=== PATIENT | male | born 1960 | race Caucasian/White ===

== ENCOUNTER 2017-06-13 14:21 | Inpatient (IN) | payer BC, OTHER ==
[~2017-06-13] VITALS: Ht 190.5 cm; Wt 83.9 kg
--- NOTE | 2017-06-13 17:35 | NUR ---
PRE-ADMISSION ASSESSMENT RECEIVED PT AT INTAKE AT 1735. PT INITIAL VS WERE BP:130/80, HR:88, O2 SAT:96%, RR:18, TEMP: 98.8. REPORTS HAVING 0 PAIN. PT APPEARS FLUSHED, SHAKY, HIGHLY ANXIOUS, RESTLESS, AGITATED. PT VOICE SHAKES HE SPEAKS. PT IS THE PRIMARY SOURCE OF INFO. PT IS AMBULATORY. PT STATES HE HAS NKA. PT REPORTS A PMH OF HTN, DEPRESSION, GOUT, HEMOCHROMOCYTOSIS, BACK SX 4 YRS AGO, MINOR KNEE SX. PT STATES HIS FATHER HAD A HX OF ETOH ABUSE. SUBSTANCE USE HX: ETOH UP TO 750 ML DAILY FOR 2 MONTHS. PT STATES HE HAS BEEN DRINKING ON AND OFF FOR YEARS WITH 2-3 MONTHS OF SOBRIETY IN BETWEEN. PT STATES THIS IS HIS FIRST TREATMENT.
[2017-06-13] MEDS ORDERED: TADA5TAB2 PO (17:56)
[2017-06-13] MEDS ORDERED: AMLO1TAB15 PO (17:56)
[2017-06-13] MEDS ORDERED: ALLO300T2 PO (17:56)
[2017-06-13] MEDS ORDERED: LORAZEPAM 2 MG/1 ML VIAL IM PRN (18:00)
[2017-06-13] MEDS ORDERED: LOPERAMIDE HCL 2 MG CAPSULE PO PRN (18:00)
[2017-06-13] MEDS ORDERED: CLONIDINE HCL 0.1 MG TABLET PO PRN (18:00)
[2017-06-13] MEDS ORDERED: IBUPROFEN 400 MG TABLET PO PRN (18:00)
[2017-06-13] MEDS ORDERED: MAG HYDROX/AL HYDROX/SIMETH 30 ML LIQUID UDC PO PRN (18:00)
[2017-06-13] MEDS ORDERED: THIAMINE HCL 200 MG/2 ML VIAL IM ONE ×2 (18:00→20:00)
[2017-06-13] MEDS ORDERED: ONDANSETRON ODT 4 MG TAB.RAPDIS SL PRN (18:00)
[2017-06-13] MEDS ORDERED: MIRALAX 17 GM POWD.PACK PO PRN (18:00)
[2017-06-13] MEDS ORDERED: ONDANSETRON 4 MG/2 ML VIAL IM PRN (18:00)
[2017-06-13] MEDS ORDERED: diphenhydrAMINE 50 MG CAPSULE PO PRN (18:00)
[2017-06-13] MEDS ORDERED: LORAZEPAM 1 MG TABLET PO PRN ×2 (18:00)
[2017-06-13] MEDS ORDERED: MAGNESIUM HYDROXIDE 30 ML LIQUID UDC PO PRN (18:00)
[2017-06-13] MEDS ORDERED: DICYCLOMINE HCL 20 MG TABLET PO PRN (18:00)
--- NOTE | 2017-06-13 19:15 | NUR ---
ADMISSION NOTE PT ARRIVED AT 1735 ON 06/13/17. PT INITIAL VS WERE BP:130/80, HR:88, O2 SAT:96%, RR:18, TEMP: 98.8. REPORTS HAVING 0 PAIN. HT IS 63, 185 LBS. INITIAL CIWA OF 12. PT IS A/OX4, RESPIRATIONS EVEN AND UNLABORED. LUNG SOUNDS CLEAR. BOWEL SOUNDS ACTIVE ON 4X QUADRANTS. ABD SOFT AND NON-TENDER. APPEARS FLUSHED, SHAKY, HIGHLY ANXIOUS, RESTLESS, AGITATED. EYES APPEAR RED AND GLOSSY. PT VOICE SHAKES HE SPEAKS. PT IS THE PRIMARY SOURCE OF INFO. PT IS AMBULATORY. PT STATES HE HAS NKA. PT REPORTS A PMH OF HTN, DEPRESSION, GOUT, HEMOCHROMOCYTOSIS, BACK SX 4 YRS AGO, MINOR KNEE SX. PT REPORTS NO HX OF SZ. DENIES SI/HI. PT STATES HIS FATHER HAD A HX OF ETOH ABUSE. PT STATES HE SMOKES ONCE IN A BLUE [place] BUT NOT DAILY. PT REFUSES PNA/FLU VACCINES. PT SKIN INTACT; BODY CHECK HAS BEEN COMPLETED. PT HAS NOT VOIDED YET AND HAS NOT PROVIDED UDS. SUBSTANCE USE HX: 1. ETOH UP TO 750 ML PO DAILY FOR 2 MONTHS. PT STATES HE HAS BEEN DRINKING ON AND OFF FOR YEARS WITH 2-3 MONTHS OF SOBRIETY ON AND OFF. LAST DRINK WAS AT 3 PM TODAY 06/13/17. 2. XANAX 0.5 MG PO PRN. LAST USED TODAY BEFORE TX. PT STATES XANAX WAS PRESCRIBED TO HIM FOR ANXIETY. PT STATES DUE TO SIGNIFICANT EVENTS IN LIFE, SUCH THE OF HIS BROTHER AND WIFES SX, AND THE RECENTLY SELLING HIS 2 COMPANIES LED HIM TO DRINK MORE THAN USUAL. PT STATES THIS IS HIS FIRST TREATMENT. PT HAS BEEN EDUCATED WITH UNIT RULES AND ORIENTED TO FLOOR. SIDE RAILSX2 UP AND PADDED. BED IS IN LOWEST POSITION. CALL LIGHT WITHIN REACH. INSTRUCTED PT TO USE CALL LIGHT WHEN NEEDED. INSTRUCTED PT TO INCREASE FLUIDS TO PROMOTE HYDRATION. ALL SAFETY MEASURES IN PLACE. WILL GIVE ALL PERTINENT INFO AND ENDORSEMENT TO SPIKE MACHINE HEATER NURSE.
--- NOTE | 2017-06-13 19:30 | NUR ---
START OF SHIFT Patient is a 57-year-old male admitted on 06/13/17 for ETOH (vodka) withdrawal. Patient is FULL code status, on a regular diet, with NKA. Patient has past medical history of anxiety, depression, gout, hypertension, hemochromatosis, and history of back and knee surgery. Patient is on fall and seizure precautions with no history of seizure. Upon assessment, patient is alert and oriented x4, flushed and tremulous, slightly diaphoretic. Patient was able to provide UDS shortly after change of shift. Safety measures in place, side rails up x2, bed locked in low position, call light within reach. Will continue to monitor.
[2017-06-13 20:00] VITALS: BP 127/87
[2017-06-13 20:05] LABS: BASOPHILS % (AUTO) 0.3 % (0.0-2.0); EOSINOPHILS % (AUTO) 0.4 % (0.0-7.0); HEMATOCRIT 33.9 % (36.7-47.1); HEMOGLOBIN 11.7 g/dL (12.5-16.3); LYMPHOCYTES # (AUTO) 0.7 K/uL (20.0-40.0); LYMPHOCYTES % (AUTO) 12.9 % (20.5-51.5); MEAN CORPUSCULAR HEMOGLOBIN 34.8 uug (23.8-33.4); MEAN CORPUSCULAR HGB CONC 34 g/dL (32.5-36.3); MEAN CORPUSCULAR VOLUME 101.2 fL (73.0-96.2); MONOCYTES # (AUTO) 0.7 K/uL (2.0-10.0); MONOCYTES % (AUTO) 12.3 % (0.0-11.0); NEUTROPHILS # (AUTO) 4.2 K/uL (1.8-8.9); NEUTROPHILS % (AUTO) 74.1 % (38.5-71.5); PLATELET COUNT (AUTO) 93 K/uL (152-348); RED BLOOD CELL COUNT(AUTO) 3.35 MIL/uL (4.06-5.63); WHITE BLOOD COUNT (AUTO) 5.7 K/uL (3.6-10.2)
[2017-06-13 20:26] LABS: CREATININE 1.1 mg/dL (0.6-1.3); MAGNESIUM 1.3 mg/dL (1.8-2.4); POTASSIUM 3.9 mmol/L (3.5-5.1); TOTAL PROTEIN, SERUM 6.7 g/dL (6.4-8.2); URIC ACID 5.1 mg/dL (3.5-7.2)
--- NOTE | 2017-06-13 20:29 | NUR ---
VITAMIN B1 NON-ADMIT Duplicate order for vitamin B1 injection. Patient already received injection prior to change of shift, administered by ROGER Bolden.
[2017-06-13 20:31] LABS: *AMPHETAMINE, URINE NEGATIVE (NEGATIVE); *BARBITURATE, URINE NEGATIVE (NEGATIVE); *CANNABINOID, URINE NEGATIVE (NEGATIVE); *COCCAINE, URINE NEGATIVE (NEGATIVE); *OPIATE, URINE NEGATIVE (NEGATIVE); *PHENCYCLIDINE SCREEN,URINE NEGATIVE (NEGATIVE)
[2017-06-13 20:38] LABS: BAND % (MANUAL) 1 % (0-10); LYMPHOCYTES % (MANUAL) 10 % (20-40); MONOCYTES % (MANUAL) 11 % (2-10); NEUTROPHILS % (MANUAL) 78 % (42-75)
[2017-06-13] MEDS ORDERED: LORAZEPAM 1 MG TABLET PO SCH (21:00)
[2017-06-14] VITALS: BP 119/81
--- NOTE | 2017-06-14 | NUR ---
CIWA DEFERRED Patient is asleep, CIWA deferred; to be assessed and scored while patient is awake. Safety measures in place, call light within reach, side rails up x2, bed locked in low position. Will continue to monitor.
[2017-06-14 04:00] VITALS: BP 128/87
--- NOTE | 2017-06-14 04:00 | NUR ---
CIWA DEFERRED Patient is asleep, CIWA deferred; to be assessed and scored while patient is awake. Safety measures in place, bed locked in low position, side rails up x2, call light within reach. Will continue to monitor.
--- NOTE | 2017-06-14 07:10 | NUR ---
END OF SHIFT Patient is a 57-year-old male admitted on 06/13/17 for ETOH withdrawal. Patient received no PRNs and slept for 9 hours during shift. Total intake was 500 mL, void x1, stool x0. Last CIWA was 12. Safety measures in place, call light within reach. Will endorse to day shift.
--- NOTE | 2017-06-14 07:11 | NUR ---
Start of Shift Notes: Received report from night nurse. Patient is a 57 year old male admitted for ETOH/BZO dependence who was placed on a 5-day Ativan taper as ordered. No adverse reactions noted. Has past medical hx of HTN, depression, anxiety, gout, hemochromatosis, back surgery, and knee surgery. NKA. FULL CODE. Regular diet. On fall and seizure precautions. No PRNS given during the night. Slept for 8 hours. Will continue to monitor throughout the day.
[2017-06-14 08:00] VITALS: BP 141/91
[2017-06-14] MEDS ORDERED: MAGNESIUM OXIDE 400 MG TABLET PO ONE (08:00)
[2017-06-14] MEDS: LOPERAMIDE HCL 2 MG CAPSULE PO PRN (08:49)
[2017-06-14] MEDS: ACETAMINOPHEN 325 MG TABLET PO PRN ×2 (08:49→20:49)
[2017-06-14] MEDS: LORAZEPAM 1 MG TABLET PO SCH ×3 (08:49→20:49)
[2017-06-14] MEDS: FOLIC ACID 1 MG TABLET PO SCH (08:49)
[2017-06-14] MEDS: THIAMINE HCL 100 MG TABLET PO SCH (08:49)
[2017-06-14] MEDS: MULTIVITAMINS,THERAPEUTIC TABLET PO SCH (08:49)
--- NOTE | 2017-06-14 08:49 | NUR ---
Tylenol 650 mg PO/Clonidine 0.1mg PO/Imodium 4 mg PO given: Patient noted with complain of headache 5/10, noted with BP 141/91, and complains of x 3 episodes of loose watery stools. Medicated patient with Tylenol 650 mg PO/Clonidine 0.1mg PO and Imodium 4 mg PO as ordered. Will monitor for effectiveness.
[2017-06-14] MEDS: ALLOPURINOL 300 MG PO SCH (08:51)
[2017-06-14] MEDS: AMLODIPINE VALSARTAN PO SCH (08:51)
[2017-06-14] MEDS ORDERED: TUBERCULIN,PURIF.PROT.DERIV. 5 TU/0.1 ML TEST ID ONE (09:00)
--- NOTE | 2017-06-14 09:49 | NUR ---
Re-assessment: Per patient, PRN Imodium, Clonidine and Tylenol were effective in ceasing diarrhea, reducing headache. PL 06/16. BP 130/85.
[2017-06-14] MEDS: FLUOXETINE HCL 20 MG CAPSULE PO SCH (10:23)
[2017-06-14 12:00] VITALS: BP 103/75
--- NOTE | 2017-06-14 12:23 | NUR ---
Ativan 1 mg PO given: CIWA 12, patient presented with gross tremors, sweating, anxiety and agitation. Pulse 114. Notified MD. Per MD, administer Ativan 1 mg PO from PRN dose and monitor for effectiveness. Ativan 1 mg PO given as ordered. Will monitor for effectiveness.
--- NOTE | 2017-06-14 13:23 | NUR ---
Re-assessment: Ativan CIWA 8, patient verbalizes that he feels less anxious and less agitation. Skin is moist to touch. PRN Ativan 1 mg PO effective in reducing patient's withdrawal symptoms.
[2017-06-14 16:00] VITALS: BP 103/71
--- NOTE | 2017-06-14 19:10 | NUR ---
End of Shift Notes: Patient continues to be on 5-day Ativan taper as ordered. VS monitored closely. No significant abnormalities noted. On Norvasc/Valsartan as ordered for HTN. Compliant with diet order. Withdrawal symptoms were closely monitored. Initial CIWA 12, patient presented with diarrhea, gross tremors, chills, sweating hot flashes, headache, fatigue, anxiety, and agitation. PRN Imodium, Clonidine and Tylenol was given at 0849 and PRN Ativan 1 mg PO at 1223 due to CIWA 12. Last CIWA 8. Per patient, Ativan has been effective in reducing his withdrawal symptoms. Requires encouragement to participate in group and activities due to episodes of self isolation. All needs met and attended. Will continue to monitor closely.
--- NOTE | 2017-06-14 19:15 | NUR ---
Start of Shift Note: Received patient lying in bed. Patient is isolative in room and appears unshaven. Pt has flushed skin and seems depressed. Patient observed with facial grimacing d/t complaints moderate headache. Patient also presented with clammy skin & sweating. Hand tremors felt but not seen. Pt denies hallucinations at this time. Patient is oriented to name, place, time & situation. Safety measures in place. Will continue to monitor patient.
[2017-06-14 20:00] VITALS: BP 110/82
--- NOTE | 2017-06-14 20:49 | NUR ---
PRN Tylenol Patient complained of 4/10 headache. Patient appears restless with facial grimacing noted. PRN Tylenol administered as ordered. Will monitor for effectiveness.
--- NOTE | 2017-06-14 21:49 | NUR ---
PRN Reassessment Patient verbalized relief from headache after medication administration. Pt observed in bed calm & comfortable. Safety measures in place. Will continue to monitor patient.
[2017-06-15] VITALS: BP 103/74
[2017-06-15 06:53] LABS: BASOPHILS % (AUTO) 0.2 % (0.0-2.0); EOSINOPHILS % (AUTO) 0.4 % (0.0-7.0); HEMATOCRIT 36.9 % (36.7-47.1); HEMOGLOBIN 12.7 g/dL (12.5-16.3); LYMPHOCYTES # (AUTO) 0.7 K/uL (20.0-40.0); LYMPHOCYTES % (AUTO) 14.9 % (20.5-51.5); MEAN CORPUSCULAR HEMOGLOBIN 34.7 uug (23.8-33.4); MEAN CORPUSCULAR HGB CONC 34 g/dL (32.5-36.3); MEAN CORPUSCULAR VOLUME 101.2 fL (73.0-96.2); MONOCYTES # (AUTO) 0.5 K/uL (2.0-10.0); MONOCYTES % (AUTO) 11.1 % (0.0-11.0); NEUTROPHILS # (AUTO) 3.4 K/uL (1.8-8.9); NEUTROPHILS % (AUTO) 73.4 % (38.5-71.5); PLATELET COUNT (AUTO) 82 K/uL (152-348); RED BLOOD CELL COUNT(AUTO) 3.64 MIL/uL (4.06-5.63); WHITE BLOOD COUNT (AUTO) 4.6 K/uL (3.6-10.2)
--- NOTE | 2017-06-15 07:24 | NUR ---
End of Shift Note: Patient continues on his Ativan taper and tolerating well. No adverse reactions noted. Pt observed to be isolative in room and needs encouragement to socialize with fellow patient. Pt reports clammy skin, fine tremors and moderate headache. Pt received PRN Tylenol for headache and was effective. Pt reports medication to be effective in controlling withdrawal symptoms. Last CIWA is 5. Pt remained compliant with medications and treatment. Pt still asleep at this time with no s/s of distress noted. Pt slept for a total of 10 hours. Fluid intake: 1350ml. Voided 2x with no bowel movement. All needs attended. Safety measures in place. Will endorse to day shift nurse.
--- NOTE | 2017-06-15 07:30 | NUR ---
Start of Shift Notes: Endorsement received from night nurse. Patient is a 57 year old male admitted for ETOH dependence. Patient is tolerating his current 5-day taper well. Received in the room. Asleep but easily arousable. Appears flushed with gross tremors. Complaining of anxiety upon waking. Patient appears unshaven and unkempt. Encouraged good personal hygiene and maintenance of personal care. Patient was medicated with Tylenol 650 mg for headache. Slept for a total of 6 hours. Last CIWA 5. Educated patient on his current plan of care for the day and his medication regimen. Encouraged oral fluid intake and encouraged group participation to learn new skills to prevent relapse. Will continue to monitor closely.
[2017-06-15 07:42] LABS: MAGNESIUM 1.4 mg/dL (1.8-2.4); POTASSIUM 3.9 mmol/L (3.5-5.1)
[2017-06-15 08:00] VITALS: BP 128/77
[2017-06-15 09:28] LABS: BAND % (MANUAL) 6 % (0-10); EOSINOPHILS % (MANUAL) 1 % (0-8); LYMPHOCYTES % (MANUAL) 14 % (20-40); MONOCYTES % (MANUAL) 11 % (2-10); NEUTROPHILS % (MANUAL) 68 % (42-75)
[2017-06-15] MEDS: THIAMINE HCL 100 MG TABLET PO SCH (09:33)
[2017-06-15] MEDS: FLUOXETINE HCL 20 MG CAPSULE PO SCH (09:33)
[2017-06-15] MEDS: MULTIVITAMINS,THERAPEUTIC TABLET PO SCH (09:33)
[2017-06-15] MEDS: FOLIC ACID 1 MG TABLET PO SCH (09:34)
[2017-06-15] MEDS: AMLODIPINE VALSARTAN PO SCH (09:35)
[2017-06-15] MEDS: LORAZEPAM 1 MG TABLET PO SCH ×2 (09:35→14:03)
[2017-06-15] MEDS: ALLOPURINOL 300 MG PO SCH (09:35)
[2017-06-15 12:00] VITALS: BP 115/64
[2017-06-15] MEDS ORDERED: MAGNESIUM OXIDE 400 MG TABLET PO ONE ×2 (13:45→21:00)
--- NOTE | 2017-06-15 14:00 | NUR ---
Communication: Labs MD Lewis made aware of patient's lab results. Especially patient's Mag level of 1.4L. Administered 800 mg of Mag Ox as ordered.
[2017-06-15 15:13] LABS: HEPATITIS B SURFACE AG Negative (Negative)
[2017-06-15 16:00] VITALS: BP 124/85
--- NOTE | 2017-06-15 19:03 | NUR ---
End of Shift Notes: Patient continues to be on 5-day Ativan taper as ordered. VS monitored closely. No significant abnormalities noted. On Norvasc/Valsartan as ordered for HTN. Compliant with diet order. Withdrawal symptoms were closely monitored. Initial CIWA 14, patient presented with gross tremors, chills, sweating hot flashes, headache, fatigue, anxiety, and agitation. Last CIWA 10. Denies S/, H/I or AV hallucinations. Per patient, Ativan has been effective in reducing his withdrawal symptoms. Appetite fair. Requires encouragement to participate in group and activities due to episodes of self isolation. Support provided. Oral fluid intake encouraged. All needs met and attended. Will continue to monitor closely.
--- NOTE | 2017-06-15 19:15 | NUR ---
Start of Shift Note: Received patient lying in bed. Patient is alert & oriented to name, place and situation. Pt is disoriented to time. Patient is isolative in room and appears disheveled & unshaven. Encourage pt to maintain personal hygiene. Pt also encourage to increase activity and socialized with others. Pt appears flushed with fine tremors . Pt complains of multiple episodes of diarrhea. No nausea/vomiting. Patient continues on his Ativan taper and tolerating well. Pt reports medication to be effective in controlling withdrawal symptoms. Last CIWA 10. No PRN medications received during day shift. Pt has a Mg level of 1.4 and was replaced during daytime. Additional MagOx was ordered and scheduled for tonight. Pt educated of current plan of care for the night and medication regimen. Pt encourage increase fluid intake. Safety measures in place. Will continue to monitor patient.
[2017-06-15 20:00] VITALS: BP 115/82
--- NOTE | 2017-06-15 20:56 | NUR ---
PRN Immodium Patient reports episodes of diarrhea. Pt denies nausea and vomiting at this time. PRN Immodium administered as ordered. Will continue to monitor patient.
[2017-06-15] MEDS ORDERED: LORAZEPAM 1 MG TABLET PO SCH (21:00)
[2017-06-16] VITALS: BP 94/65
[2017-06-16 04:00] VITALS: BP 111/81
--- NOTE | 2017-06-16 07:03 | NUR ---
End of Shift Note: Patient continues on his Ativan taper and tolerating well. No adverse reactions noted. Pt observed to be isolative in room and needs encouragement to socialize with fellow patient. Pt also encourage to increase activity and drink plenty of fluids. Pt reports clammy skin, fine tremors, diarrhea, anxiety & agitation. Pt had some episodes of diarrhea and was given PRN Immodium and was effective. Pt noted with a Mg level of 1.4 and was replaced with Mag Ox 800mg as ordered. Pt reports medication to be effective in controlling withdrawal symptoms. Last CIWA is 9. Pt remained compliant with medications and treatment. Continue to closely monitor signs and symptoms of withdrawal. Vitals noted WNL. Pt still asleep at this time. Pt slept for a total of 9 hours. Fluid intake: 2355ml. Voided 3x with 4x loose bowel movement during my shift. Will continue to monitor loose BM. All needs attended. Safety measures in place. Will endorse to day shift nurse.
--- NOTE | 2017-06-16 07:30 | NUR ---
START OF SHIFT Pt 57 y/o male admitted for medically supervised withdrawal. Pt received in room on bed with eyes closed resting, but easily arousable to name. Pt alert and oriented to name, place, and time. Respirations even and unlabored. Bilateral hand tremors noted. Pt appears disheveled. Clothes scattered throughout pt's room and empty bottles of drinks noted on bed side. Pt is on a 5 day ativan taper and is on day 4. Last reported ciwa=9 @0400. It was reported that pt slept for 9 hours last night. Bed on lowest position with side rails x2 up for safety. Call light within reach.
[2017-06-16 07:45] LABS: BASOPHILS % (AUTO) 0.2 % (0.0-2.0); EOSINOPHILS % (AUTO) 0.8 % (0.0-7.0); HEMATOCRIT 37.2 % (36.7-47.1); HEMOGLOBIN 12.8 g/dL (12.5-16.3); LYMPHOCYTES # (AUTO) 0.8 K/uL (20.0-40.0); LYMPHOCYTES % (AUTO) 16.8 % (20.5-51.5); MEAN CORPUSCULAR HEMOGLOBIN 34.9 uug (23.8-33.4); MEAN CORPUSCULAR HGB CONC 34 g/dL (32.5-36.3); MEAN CORPUSCULAR VOLUME 101.4 fL (73.0-96.2); MONOCYTES # (AUTO) 0.8 K/uL (2.0-10.0); MONOCYTES % (AUTO) 15.3 % (0.0-11.0); NEUTROPHILS # (AUTO) 3.3 K/uL (1.8-8.9); NEUTROPHILS % (AUTO) 66.9 % (38.5-71.5); PLATELET COUNT (AUTO) 83 K/uL (152-348); RED BLOOD CELL COUNT(AUTO) 3.66 MIL/uL (4.06-5.63)
[2017-06-16 07:47] LABS: CREATININE 1.1 mg/dL (0.6-1.3); MAGNESIUM 1.8 mg/dL (1.8-2.4); POTASSIUM 4.3 mmol/L (3.5-5.1)
[2017-06-16] MEDS: THIAMINE HCL 100 MG TABLET PO SCH (08:20)
[2017-06-16] MEDS: ALLOPURINOL 300 MG PO SCH (08:20)
[2017-06-16] MEDS: FLUOXETINE HCL 20 MG CAPSULE PO SCH (08:20)
[2017-06-16] MEDS: FOLIC ACID 1 MG TABLET PO SCH (08:20)
[2017-06-16] MEDS: MULTIVITAMINS,THERAPEUTIC TABLET PO SCH (08:20)
[2017-06-16] MEDS: AMLODIPINE VALSARTAN PO SCH (08:20)
[2017-06-16 08:23] VITALS: BP 117/84
[2017-06-16] MEDS ORDERED: LORAZEPAM 1 MG TABLET PO SCH (09:00)
[2017-06-16 10:47] LABS: BAND % (MANUAL) 2 % (0-10); LYMPHOCYTES % (MANUAL) 17 % (20-40); MONOCYTES % (MANUAL) 11 % (2-10); NEUTROPHILS % (MANUAL) 70 % (42-75)
--- NOTE | 2017-06-16 11:15 | NUR ---
NSG ENTRY Instructed pt that we needed to collect stool sample and to notify staff when pt has a bm. Left catch container in pt's toilet.
[2017-06-16 12:36] VITALS: BP 106/75
[2017-06-16] MEDS ORDERED: GABAPENTIN 100 MG CAPSULE PO SCH (13:00)
[2017-06-16] MEDS ORDERED: MAGNESIUM OXIDE 400 MG TABLET PO ONE (13:00)
[2017-06-16] MEDS: LOPERAMIDE HCL 2 MG CAPSULE PO PRN (14:07)
--- NOTE | 2017-06-16 14:10 | NUR ---
PRN Pt with partially loose and partially formed stool noted. Immodium 4 mg po prn per MD order given and tolerated well.
--- NOTE | 2017-06-16 15:10 | NUR ---
PRN EVAL Pt denies any loose BM.
[2017-06-16 16:00] VITALS: BP 118/88
[2017-06-16] MEDS: LORAZEPAM 1 MG TABLET PO SCH ×2 (16:11→20:54)
--- NOTE | 2017-06-16 18:35 | NUR ---
END OF SHIFT Pt 57 y/o male admitted for medically supervised withdrawal. Pt alert and oriented to name, place, and time. Skin warm and moist to touch. Respirations even and unlabored. Bilateral hand tremors noted. Pt appears disheveled with hair uncombed. Scattered clothes throughout the room noted. Pt observed isolative to room the whole day. CIWA=9@0800, 9@1200, and 9@1600. Pt was seen by MD today. Pt medication compliant and tolerated well. No ASE noted. Pt was given Immodium po prn per MD order this morning for loose stool noted. Stool sample was collected for C. Diff test, awaiting results. Pt is on a 5 day ativan taper and is on day 4. Pt did not attend group activity today. Bed on lowest position with side rails x2 up for safety. Call light within reach.
--- NOTE | 2017-06-16 19:15 | NUR ---
Start of Shift Note: Received patient lying in bed. Patient is alert & oriented to name, place, time and situation. Patient is isolative in room and appears disheveled and unshaven. Pt did shower during the day. Encourage pt to maintain personal hygiene. Pt also encourage to increase activity and socialized with others. Pt did not attend groups or activities during the day. Will continue to encourage pt to participate in groups and activities to learn new coping skills to prevent relapse. Pt appears flushed with fine tremors noted. Pt still noted with diarrhea. Stool specimen collected to rule out C-diff, awaiting for result. Pt received PRN Immodium during the day. No nausea/vomiting. Patient continues on his Ativan taper and tolerating well. Pt reports medication to be effective in controlling withdrawal symptoms. Last CIWA 9. Pt educated of current plan of care for the night and medication regimen. Pt encourage increase fluid intake. Safety measures in place. Will continue to monitor patient.
[2017-06-16 20:00] VITALS: BP 109/76
[2017-06-16] MEDS: GABAPENTIN 100 MG CAPSULE PO SCH (20:54)
[2017-06-17] VITALS: BP 111/68
--- NOTE | 2017-06-17 07:13 | NUR ---
End of Shift Note: Patient continues on his Ativan taper and tolerating well. No adverse reactions noted. Pt observed to be isolative in room and needs encouragement to socialize with fellow patient. Continue to encourage patient to participate in group activities to learn coping skills to prevent relapse. Pt reports clammy skin, fine tremors, diarrhea, anxiety & agitation. Pt reports taper medication to be effective in controlling withdrawal symptoms. Last CIWA is 9. Pt remained compliant with medications and treatment. Still awaiting for result on C-diff test. Continue to closely monitor signs and symptoms of withdrawal. Vitals noted WNL. Pt still asleep at this time. Pt slept for a total of 10 hours. Fluid intake: 1000ml. Voided 1x with no loose bowel movement during my shift. Will continue to monitor loose BM. All needs attended. Safety measures in place. Will endorse to day shift nurse.
--- NOTE | 2017-06-17 07:35 | NUR ---
START OF SHIFT Pt is 57 yr old male, AA&OX4. Pt was admitted on 06/13/17 for ETOH w/d and is on day 5 of 5 day Ativan taper. Received report from shift lab technician nurse. Pt is on monitoring for episodes of diarrhea. Stool was collected on 06/16/17 for c-diff, results are pending. No episodes of diarrhea was reported during the night. Pt slept for 10 hrs. Last CIWA score was 9. Pt is currently reporting of waking up anxious this morning due to his son's birthday. Fine tremors were observed on bilateral hands. Skin is warm and moist to touch. Pt was encouraged to attend group therapy. Pt agreed to attended. Safety precautions observed. Call light is within reach. Will continue to monitor.
[2017-06-17 08:00] VITALS: BP 134/75
[2017-06-17] MEDS ORDERED: LORAZEPAM 1 MG TABLET PO SCH (09:00)
[2017-06-17] MEDS: THIAMINE HCL 100 MG TABLET PO SCH (09:06)
[2017-06-17] MEDS: AMLODIPINE VALSARTAN PO SCH (09:06)
[2017-06-17] MEDS: FLUOXETINE HCL 20 MG CAPSULE PO SCH (09:06)
[2017-06-17] MEDS: ALLOPURINOL 300 MG PO SCH (09:06)
[2017-06-17] MEDS: FOLIC ACID 1 MG TABLET PO SCH (09:06)
[2017-06-17] MEDS: GABAPENTIN 100 MG CAPSULE PO SCH (09:07)
[2017-06-17] MEDS: MULTIVITAMINS,THERAPEUTIC TABLET PO SCH (09:07)
[2017-06-17 12:00] VITALS: BP 115/76
[2017-06-17] MEDS: GABAPENTIN 300 MG CAPSULE PO SCH ×2 (14:49→20:46)
[2017-06-17 16:00] VITALS: BP 121/83
--- NOTE | 2017-06-17 19:08 | NUR ---
END OF SHIFT NOTE Patient completed his Ativan taper tolerated well. Vital signs remained WNL. Patient did not receive any PRN medications during shift. Patient did not had any episode of active diarrhea and result came out negative for c-Diff. Encourage Po fluids as tolerated. Last COWS- 3 @1600. Skin intact warm and dry to touch. Patient attended groups and activities. Patient scheduled for discharge in AM. All needs attended, Safety measures in place. Patient endorsed to night nurse in stable condition.
--- NOTE | 2017-06-17 19:30 | NUR ---
START OF SHIFT Pt is 57 yr old male, A/A/O X 4. Pt admitted for ETOH dependency.Pt has completed his Ativan taper and is scheduled for DC tomorrow.Received resting in bed,breathing is even and non labored,no c/o pain or distress noted.Last CIWA=3.PO fluids encouraged as tolerated. All safety measures in place per hospital policy,call light within reach,will continue to monitor.
[2017-06-17 20:00] VITALS: BP 122/81
[2017-06-17] MEDS ORDERED: CLON0.1T14 PO (20:17)
[2017-06-17] MEDS ORDERED: FLUO-120 PO (20:17)
[2017-06-17] MEDS ORDERED: GABA-534 PO (20:17)
[2017-06-17] MEDS ORDERED: DIPH50CA37 PO (20:17)
--- NOTE | 2017-06-18 | NUR ---
V/S REFUSED ; CIWA DEFERRED Pt refused v/s, he is sleeping deeply;breathing is even and non labored,no s/s of distress noted,CIWA deferred d/t sleep.
--- NOTE | 2017-06-18 04:00 | NUR ---
V/S REFUSED ; CIWA DEFERRED Pt refused v/s, he is sleeping deeply;breathing is even and non labored,no s/s of distress noted,CIWA deferred d/t sleep.
--- NOTE | 2017-06-18 07:20 | NUR ---
start of shift : patient is a 55 yr old male admitted to [facility] on 06/13/17 for withdrawal from alcohol. Patient is to be discharged today to home. Patient slept for 7 hours last night, no PRN medications were requested or required. Last CIWA 3 Will follow MD plan of care.
--- NOTE | 2017-06-18 07:31 | NUR ---
END OF SHIFT Pt is 57 yr old male, AA&OX4. Pt admitted for ETOH dependency.Pt has completed his Ativan taper and is scheduled for DC today.Pt is awake and resting in bed, breathing is even and non labored,no c/o pain or distress noted.Last CIWA=3. No PRN meds given.Pt slept 7 hrs; fluid intake was 1296 mls,voided x 1. PO fluids encouraged as tolerated. All safety measures in place per hospital policy,call light within reach,will continue to monitor.
[2017-06-18 08:00] VITALS: BP 118/84
[2017-06-18] MEDS: ALLOPURINOL 300 MG PO SCH (08:29)
[2017-06-18] MEDS: FLUOXETINE HCL 20 MG CAPSULE PO SCH (08:29)
[2017-06-18] MEDS: THIAMINE HCL 100 MG TABLET PO SCH (08:29)
[2017-06-18] MEDS: MULTIVITAMINS,THERAPEUTIC TABLET PO SCH (08:29)
[2017-06-18] MEDS: AMLODIPINE VALSARTAN PO SCH (08:29)
[2017-06-18] MEDS: GABAPENTIN 300 MG CAPSULE PO SCH (08:29)
[2017-06-18] MEDS: FOLIC ACID 1 MG TABLET PO SCH (08:30)
--- NOTE | 2017-06-18 09:30 | NUR ---
Discharge note: patient discharged in stable condition, vitals: BP 118/84 HR 81 O2 100% T 98.5 patient denies any SI/HI, all discharge paperwork signed and dated and all medications and belongings returned to patient. Patient was discharged from [facility] @ 0930 06/18/17. Patient ambulated off the unit and was picked up by " [employer] " private car service.
== END 2017-06-18 09:28 | disposition other institution (70) | DRG 895 ==
LOC: SRC 16:31
PROVIDERS: ADMIT Internal Medicine; ATTEND Internal Medicine
PROC: HZ2ZZZZ Detoxification Services for Substance Abuse Treatment (ICD-10-PCS; principal; 2017-06-13)
PROC: HZ31ZZZ Individual Counseling for Substance Abuse Treatment, Behavioral (ICD-10-PCS; 2017-06-16)
DX: F10.230 Alcohol dependence with withdrawal, uncomplicated (principal); D69.6 Thrombocytopenia, unspecified; I15.9 Secondary hypertension, unspecified; E83.42 Hypomagnesemia; F33.1 Major depressive disorder, recurrent, moderate; E86.0 Dehydration; D50.9 Iron deficiency anemia, unspecified; F13.90 Sedative, hypnotic, or anxiolytic use, unspecified, uncomplicated; F41.9 Anxiety disorder, unspecified; Y90.9 Presence of alcohol in blood, level not specified; M10.9 Gout, unspecified; Z81.1 Family history of alcohol abuse and dependence; Z91.5 Personal history of self-harm; Z80.0 Family history of malignant neoplasm of digestive organs; G89.29 Other chronic pain; F17.211 Nicotine dependence, cigarettes, in remission; E83.110 Hereditary hemochromatosis; D53.9 Nutritional anemia, unspecified; M54.5 Low back pain; R19.7 Diarrhea, unspecified
CPT/HCPCS: 36415; 80307; 80346; 82746; 83550; 83735; 84100; 84550; 85025; 86580; 86592; 86705; 86803; 87340; 87806; A4663; G0480; J3411